=== PATIENT | male | born 1990 | race Caucasian/White ===

== ENCOUNTER 2020-08-11 06:57 | Outpatient (NON) | payer OTHER, SELFPAY ==
[2020-08-11 11:10] LABS: Influenza Control Positive
[2020-08-11 22:42] LABS: SARS-CoV-2 RNA PCR Positive
== END 2020-08-11 06:58 ==
LOC: ANHCOVIDDT 07:20
PROVIDERS: PCP Family Medicine; Visit Provider Family Medicine
DX: R05 Cough (principal); U07.1 COVID-19
CPT/HCPCS: 87635; 87804; C9803; U0003